=== PATIENT | female | born 1985 | race Caucasian/White ===

== ENCOUNTER → 2019-06-01 | Outpatient (CLI) | payer OTHER ==
--- NOTE | 2019-06-01 16:00 | RAD ---
EXAM: Pelvic sonogram. HISTORY: Menorrhagia. TECHNIQUE: Transabdominal and transvaginal sonographic imaging of the pelvis was performed. COMPARISON: None. FINDINGS: The uterus measures 8.8 x 5.7 x 4.1 cm. The endometrial stripe measures 9 mm in thickness. The ovaries are normal in size and demonstrate normal blood flow. There is a small amount of pelvic free fluid. There is a nabothian cyst within the cervix. IMPRESSION: 1. Small amount of nonspecific pelvic free fluid. 2. Normal endometrial thickness for a premenopausal female. Electronically signed by: Neris Christensen MD (06/01/2019 3:58 PM) [place] [id number]
== END | disposition home or self-care (01) ==
LOC: US 14:45
PROVIDERS: ATTEND Nurse Practitioner Women's Health
DX: N88.8 Other specified noninflammatory disorders of cervix uteri (principal); N92.0 Excessive and frequent menstruation with regular cycle
CPT/HCPCS: 76830; 76856